=== PATIENT | female | born 1950 | race Caucasian/White ===

== ENCOUNTER 2017-05-21 11:13 | Emergency (ER) | payer OTHER ==
[~2017-05-21] VITALS: Ht 157.5 cm; Wt 89.0 kg
[~2017-05-21 11:13] MED LIST: AMLO2.5T2 PO; ASPI81TA3 PO; ATOR20TA38 PO; LOSA1TAB20 PO; METO25TA7 PO; PIOG1TAB35 PO
[2017-05-21 11:17] VITALS: Ht 157.5 cm; Wt 89.0 kg
[2017-05-21] MEDS ORDERED: ACETAMINOPHEN 325 MG TAB PO ONE (11:30)
--- NOTE | 2017-05-21 12:56 | RADRPT ---
PROCEDURE: CT Brain without contrast. CLINICAL INDICATION: Pain, headache TECHNIQUE: Routine CT scan of the brain was performed on a high resolution multi detector scanner without intravenous contrast. One or more of the following dose reduction techniques were used: Auto mated exposure control; Adjustment of the mA and/or kV according to patient size; Use of iterative r econstruction technique. CTDI = 43 mGy. DLP = 720 mGy-cm. COMPARISON: No prior relevant examinations are available for comparison. FINDINGS: Hemorrhage: No evidence of intracranial hemorrhage. Acute ischemic changes: No evidence of acute ischemic changes. Mass effect: None. Parenchymal volume: Mild central parenchymal volume loss is evident. Ventricular system: Concordant with parenchymal volume. Chronic changes: Mild chronic-appearing microvascular ischemic changes of the supratentorial white m atter. Atherosclerotic calcifications of the cavernous portions of both internal carotid arteries ar e present. Extracranial soft tissues: Unremarkable. Calvarium: No fractures. Paranasal sinuses: Visualized paranasal sinuses are clear. Mastoid air cells: Visualized mastoid air cells are clear. IMPRESSION: No acute intracranial abnormalities. Mild chronic-appearing microvascular ischemic changes of the supratentorial white matter. No fractures. RPTAT: AADD .German Tomas MD, MD Date Time Electronically viewed and signed by .German Tomas MD, on 05/21/2017 12:56 .B/
--- NOTE | 2017-05-21 12:57 | RADRPT ---
PROCEDURE: XR Hip. CLINICAL INDICATION: Fall/hip pain TECHNIQUE: AP and frog lateral views of the right hip were performed. COMPARISON: None. FINDINGS: There is normal mineralization and alignment. No fracture or osseous lesion is identified. There are normal joints without evidence of arthritis or effusion. Enthesopathic changes are seen at the grea ter trochanter and hamstring origins. The soft tissues are unremarkable. IMPRESSION: 1. No acute osseous abnormality. 2. Preserved right hip joint. RPTAT: AA .George Pat MD, MD Date Time Electronically viewed and signed by .George Pat MD, MD on 05/21/2017 12:57 .d/
--- NOTE | 2017-05-21 12:57 | RADRPT ---
PROCEDURE: XR Foot. CLINICAL INDICATION: Great toe injury. TECHNIQUE: Three views of the right foot are available for review. COMPARISON: None available FINDINGS: There is no acute osseous or articular abnormality. No evidence for fracture. Bone mineral density is preserved. The articular surfaces are smooth without evidence of marginal erosions. No displaced fractures are evident. Os peroneum. Enthesopathic changes seen about the calcaneus. There is modera te soft tissue swelling at the midfoot. IMPRESSION: 1. Decreased bone mineral density without radiographic evidence for fracture. 2. Moderate soft tissue swelling at the midfoot. RPTAT: AA .George Pat MD, Date Time Electronically viewed and signed by .George Pat MD, on 05/21/2017 12:57 .d/
--- NOTE | 2017-05-21 13:01 | RADRPT ---
PROCEDURE: XR Hand. CLINICAL INDICATION: Right hand pain. Injury. TECHNIQUE: Three views of the right hand were obtained. COMPARISON: No prior studies are available for comparison. FINDINGS: There is no evidence of acute fracture or dislocation. The joint spaces are maintained. Bony mineralization is normal. Soft tissues are unremarkable. No radiopaque foreign body identified. IMPRESSION: 1. Unremarkable right hand x-ray series. 2. No acute fracture or dislocation is seen. RPTAT: QQ .Russell Abarca MD, Date Time Electronically viewed and signed by .Russell Abarca MD, on 05/21/2017 13:01 .Tara/
--- NOTE | 2017-05-21 13:50 | RADRPT ---
PROCEDURE: XR Cervical Spine. CLINICAL INDICATION: Neck pain. Fall. TECHNIQUE: Three views of the cervical spine were performed. The images were reviewed on a PACS wo [facility]. COMPARISON: None. FINDINGS: No fracture or dislocation identified. The vertebral body alignment, height and osseous mineralization are normal. There is preservation of the normal cervical lordosis. There is no facet arthropathy. There is mild degenerative change of the uncovertebral joints. Small anterior osteophyte formations at C5 and C6. Mild intervertebral disc space narrowing throughout the cervical spine. The ligamentum nuchae calcifications are noted at C5, normal variant. The prevertebral soft tissues are normal. No radiopaque foreign bodies are identified. IMPRESSION: 1. No evidence of fracture or dislocation. 2. Mild degenerative changes. RPTAT: QQ .Russell Abarca MD, Date Time Electronically viewed and signed by .Russell Abarca MD, on 05/21/2017 13:50 .M/
[2017-05-21] MEDS ORDERED: ACET500C5 PO (13:54)
--- NOTE | 2017-05-21 14:11 | ERD ---
ER Documentation Chief Complaint Date/Time DATE: 05/21/17 TIME: 14:06 Chief Complaint MECH FALL, HIT LEFT SIDE HEAD, NO KO HPI 66-year-old female patient with no significant past medical history presents the ED complaining of a mechanical fall in the shower and accidentally hit her right side of her head. Denies any loss of consciousness. States that she also landed on her right hip and right foot. States that she tried to catch her fall with her right hand. States that she has a pressure-like right-sided headache. Reports that she is still able to ambulate. States that she has bruising on the right side of her hip and buttocks. Denies any saddle anesthesia, numbness or tingling, urine or bowel incontinence, urinary retention. Denies any fever, chills, nausea, vomiting, diarrhea, chest pain, shortness of breath. ROS All systems reviewed and are negative except as per history of present illness. Medications Home Meds Active Scripts Acetaminophen* (Tylophen*) 500 Mg Capsule, 1 CAP PO Q6H Y for PAIN AND OR ELEVATED TEMP, #20 CAP Prov:TALAT SERRATO PA-C 05/21/17 Aspirin (Aspirin) 81 Mg Chew, 81 MG PO DAILY for CHEST PAIN for 30 Days Prov:MYRA ARRIOLA MD 06/27/15 Reported Medications Atorvastatin Calcium* (Atorvastatin Calcium*) 20 Mg Tablet, 20 MG PO HS, TAB 06/26/15 Amlodipine Besylate* (Norvasc*) 2.5 Mg Tablet, 2.5 MG PO DAILY, TAB 06/26/15 Pioglitazone Hcl-Metformin Hcl (Pioglitazone Hcl-Metformin Hcl) 15-850 Mg Tablet , 1 TAB PO TID, TAB 06/26/15 Losartan-Hydrochlorothiazide (Losartan-HCTZ) 100-25 Mg Tab, 1 TAB PO DAILY, TAB 06/26/15 Metoprolol Succinate* (Toprol XL*) 25 Mg Tab.sr.24h, 25 MG PO DAILY 04/13/13 Allergies Allergies: Coded Allergies: No Known Drug Allergy (Verified Allergy, Mild, 06/26/15) PMhx/Soc History of Surgery: Yes (GB) Anesthesia Reaction: No Hx Neurological Disorder: No Hx Respiratory Disorders: No Hx Cardiac Disorders: Yes (HTN) Hx Psychiatric Problems: No Hx Miscellaneous Medical Probl: Yes (DIABETES) Hx Alcohol Use: No Hx Substance Use: No Hx Tobacco Use: No Smoking Status: Never smoker Physical Exam Vitals Vital Signs Date Time Temp Pulse Resp B/P Pulse Ox O2 Delivery O2 Flow Rate FiO2 05/21/17 11:17 98.1 81 18 147/81 99 Physical Exam Const: [id number], well-nourished. In no acute distress. Head: Atraumatic, normocephalic. No hematoma. No ma sign. Eyes: Normal Conjunctiva without injection. No purulent discharge. PERRLA. EOMI ENT: Normal external ear. Ear canal without erythema. Tympanic membrane pearly ponce without effusion or bulging. No hemotympanum. Nasal canal clear with normal turbinates. Moist oropharynx without tonsillar exudates. Non- erythematous pharynx. Uvula midline. No drooling. No trismus. Neck: No cervical midline tenderness. Full range of motion. No meningismus. No cervical lymphadenopathy. No JVD. Resp: Clear to auscultation bilaterally. No wheezing, rhonchi, rales, or crackles. No accessory muscle use. No retractions. Cardio: Regular rate and rhythm. No murmurs, rubs or gallops. Abd: Soft, non tender, non distended. Normal bowel sounds. No palpable masses. No rebound tenderness. No guarding. Negative McBurney's Point. Negative Suarez's Sign. Skin: Normal skin turgor. No petechiae or rashes Back: No midline tenderness. No CVA tenderness. Ext: No cyanosis, or edema. Distal pulses intact bilaterally. Tenderness to palpation of the right great toe. Tenderness palpation of the dorsal aspect of patient's right hand. Tenderness palpation of the right buttocks. Patient is ambulating without difficulty. Full range of motion of all joint spaces with flexion, extension. No snuffbox tenderness. Neur: Awake and alert. Normal gait. Normal coordination. Cranial Nerves II- VII intact. Normal finger to nose. Muscle strength 5/5. Sensation intact. Psych: Normal Mood and Affect Results 24 hrs Current Medications Medications (Trade) Dose Ordered Sig/Adam Route PRN Reason Start Time Stop Time Status Last Admin Dose Admin Acetaminophen (Tylenol Tab) 650 mg ONCE ONCE PO 05/21/17 11:30 05/21/17 11:35 DC 05/21/17 12:12 PROCEDURE: XR Hip. CLINICAL INDICATION: Fall/hip pain TECHNIQUE: AP and frog lateral views of the right hip were performed. COMPARISON: None. FINDINGS: There is normal mineralization and alignment. No fracture or osseous lesion is identified. There are normal joints without evidence of arthritis or effusion. Enthesopathic changes are seen at the greater trochanter and hamstring origins. The soft tissues are unremarkable. IMPRESSION: 1. No acute osseous abnormality. 2. Preserved right hip joint. PROCEDURE: XR Cervical Spine. CLINICAL INDICATION: Neck pain. Fall. TECHNIQUE: Three views of the cervical spine were performed. The images were reviewed on a PACS workstation. COMPARISON: None. FINDINGS: No fracture or dislocation identified. The vertebral body alignment, height and osseous mineralization are normal. There is preservation of the normal cervical lordosis. There is no facet arthropathy. There is mild degenerative change of the uncovertebral joints. Small anterior osteophyte formations at C5 and C6. Mild intervertebral disc space narrowing throughout the cervical spine. The ligamentum nuchae calcifications are noted at C5, normal variant. The prevertebral soft tissues are normal. No radiopaque foreign bodies are identified. IMPRESSION: 1. No evidence of fracture or dislocation. 2. Mild degenerative changes. PROCEDURE: CT Brain without contrast. CLINICAL INDICATION: Pain, headache TECHNIQUE: Routine CT scan of the brain was performed on a high resolution multi detector scanner without intravenous contrast. One or more of the following dose reduction techniques were used: Automated exposure control; Adjustment of the mA and/or kV according to patient size; Use of iterative reconstruction technique. CTDI = 43 mGy. DLP = 720 mGy-cm. COMPARISON: No prior relevant examinations are available for comparison. FINDINGS: Hemorrhage: No evidence of intracranial hemorrhage. Acute ischemic changes: No evidence of acute ischemic changes. Mass effect: None. Parenchymal volume: Mild central parenchymal volume loss is evident. Ventricular system: Concordant with parenchymal volume. Chronic changes: Mild chronic-appearing microvascular ischemic changes of the supratentorial white matter. Atherosclerotic calcifications of the cavernous portions of both internal carotid arteries are present. Extracranial soft tissues: Unremarkable. Calvarium: No fractures. Paranasal sinuses: Visualized paranasal sinuses are clear. Mastoid air cells: Visualized mastoid air cells are clear. IMPRESSION: No acute intracranial abnormalities. Mild chronic-appearing microvascular ischemic changes of the supratentorial white matter. No fractures. PROCEDURE: XR Foot. CLINICAL INDICATION: Great toe injury. TECHNIQUE: Three views of the right foot are available for review. COMPARISON: None available FINDINGS: There is no acute osseous or articular abnormality. No evidence for fracture. Bone mineral density is preserved. The articular surfaces are smooth without evidence of marginal erosions. No displaced fractures are evident. Os peroneum. Enthesopathic changes seen about the calcaneus. There is moderate soft tissue swelling at the midfoot. IMPRESSION: 1. Decreased bone mineral density without radiographic evidence for fracture. 2. Moderate soft tissue swelling at the midfoot. PROCEDURE: XR Hand. CLINICAL INDICATION: Right hand pain. Injury. TECHNIQUE: Three views of the right hand were obtained. COMPARISON: No prior studies are available for comparison. FINDINGS: There is no evidence of acute fracture or dislocation. The joint spaces are maintained. Bony mineralization is normal. Soft tissues are unremarkable. No radiopaque foreign body identified. IMPRESSION: 1. Unremarkable right hand x-ray series. 2. No acute fracture or dislocation is seen. Procedures/MDM 66-year-old female patient with a past medical history of hypertension, diabetes , hyperlipidemia presents to the ED complaining of a mechanical fall in the shower. Patient is afebrile and nontoxic-appearing. Patient has normal vital signs. A CT of the brain without contrast, right hip, right foot, right hand, neck x-ray was ordered to further evaluate patient. Chest x-ray show no evidence of fractures or dislocations. Patient is neurovascularly intact. Patient's extremity symptoms have stabilized while they have been evaluated in the department and are appropriate for outpatient follow up. No evidence of fractures, dislocations, compartment syndrome, neurologic injury, vascular injury, open joint, open fracture, tendon laceration, septic arthritis, osteomyelitis, DVT, foreign body, or other emergent conditions. Low suspicion for intracranial bleed, subarachnoid hemorrhage, meningitis, TIA, stroke, subdural hematoma, epidural hematoma, or other emergent conditions. Patient is ambulating here in the ED without difficulty. Denies saddle anesthesia, numbness or tingling, urine or bowel incontinence, weakness. Low suspicion for cauda equina syndrome, cord compression, nephrolithiasis, aortic aneurysm, aortic dissection, epidural abscess, spinal hematoma, malignancy, pyelonephritis , or other emergent conditions. Discharge medications: Tylenol Follow up with primary care physician in 1-2 days. Instructed patient to return to the ED sooner for any worsening symptoms. Patient's questions were answered. Patient understood and agreed with discharge plan. Patient discharged stable. Departure Diagnosis: Primary Impression: Fall with no significant injury Encounter type: initial encounter Qualified Code: W19.XXXA - Fall with no significant injury, initial encounter Condition: Stable Patient Instructions: Preventing Falls in the Home, Fall, Mechanical, HEAD INJURY, No Wake-Up (Adult), Fall Prevention Referrals: [facility] (PCP) [facility] YOU HAVE RECEIVED A MEDICAL SCREENING EXAM AND THE RESULTS INDICATE THAT YOU DO NOT HAVE A CONDITION THAT REQUIRES URGENT TREATMENT IN THE EMERGENCY DEPARTMENT. FURTHER EVALUATION AND TREATMENT OF YOUR CONDITION CAN WAIT UNTIL YOU ARE SEEN IN YOUR DOCTORS OFFICE WITHIN THE NEXT 1-2 DAYS. IT IS YOUR RESPONSIBILITY TO MAKE AN APPOINTMENT FOR FOLOW-UP CARE. IF YOU HAVE A PRIMARY DOCTOR --you should call your primary doctor and schedule an appointment IF YOU DO NOT HAVE A PRIMARY DOCTOR YOU CAN CALL OUR PHYSICIAN REFERRAL HOTLINE AT IF YOU CAN NOT AFFORD TO SEE A PHYSICIAN YOU CAN CHOSE FROM THE FOLLOWING [facility] [address] [facility]. [facility] [address] [facility]. [facility] [address] [facility] [address] [facility]. [facility] [address] [facility]. [facility]. [address] [facility] YOU HAVE RECEIVED A MEDICAL SCREENING EXAM AND THE RESULTS INDICATE THAT YOU DO NOT HAVE A CONDITION THAT REQUIRES URGENT TREATMENT IN THE EMERGENCY DEPARTMENT. FURTHER EVALUATION AND TREATMENT OF YOUR CONDITION CAN WAIT UNTIL YOU ARE SEEN IN YOUR DOCTORS OFFICE WITHIN THE NEXT 1-2 DAYS. IT IS YOUR RESPONSIBILITY TO MAKE AN APPOINTMENT FOR FOLOW-UP CARE. IF YOU HAVE A PRIMARY DOCTOR --you should call your primary doctor and schedule and appointment IF YOU DO NOT HAVE A PRIMARY DOCTOR YOU CAN CALL OUR PHYSICIAN REFERRAL HOTLINE AT . IF YOU CAN NOT AFFORD TO SEE A PHYSICIAN YOU CAN CHOSE FROM THE FOLLOWING [facility] INSTITUTIONS: [facility] [address] [place] [address] [facility] [address] [place] [address] [facility] [address] [place] [address] [facility] URGENT [facility]/SPECIALTIES Additional Instructions: Call your primary care doctor TOMORROW for an appointment during the next 2-3 days.See the doctor sooner or return here if your condition worsens before your appointment time. TALAT SERRATO PA-C May 21, 2017 14:11
== END 2017-05-21 14:29 | disposition home or self-care (01) ==
LOC: FTE 11:13
DX: S09.90XA Unspecified injury of head, initial encounter (principal); S79.911A Unspecified injury of right hip, initial encounter; S99.921A Unspecified injury of right foot, initial encounter; I10 Essential (primary) hypertension; E11.9 Type 2 diabetes mellitus without complications; R51 Headache; W01.198A Fall on same level from slipping, tripping and stumbling with subsequent striking against other object, initial encounter; Y92.9 Unspecified place or not applicable; Z79.82 Long term (current) use of aspirin
CPT/HCPCS: 70450; 72040; 73510; 73630